=== PATIENT | male | born 1980 | race American Indian/Alaskan Native ===

== ENCOUNTER 2019-10-07 13:45 | Inpatient (IN) | payer OTHER ==
[2019-10-07] MEDS ORDERED: HYDROcodone/ACETAMINOPHEN 5-325 MG TAB PO ONE (15:40)
--- NOTE | 2019-10-07 15:40 | Emergency Department Report ---
ED Lower Extremity HPI - General Chief Complaint: Extremity Injury, Lower Stated Complaint: RIGHT FOOT PAIN, INFLAMMATION, DRAINAGE Time Seen by Provider: 10/07/19 15:23 Source: patient Mode of arrival: Ambulatory Limitations: No Limitations - History of Present Illness Initial Comments: This is a 39-year-old male presented to the emergency room complaining of right foot pain x3 weeks. Patient reports that he took some of his mom's antibiotic but unknown name. Denies any nausea vomiting. Denies any fever or chills. Denies any numbness or tingling to extremities. Denies any history of diabetes or hypertension. Denies any cough or shortness of breath. Reports pain to right foot distally 7/10 worse with walking, touch and movement. Pain is achy and throbbing. Denies taking any [id number] pain medication. Patient does not have a primary care. Patient reports that it started 3 weeks ago after he has been working for a while and water and his feet gets wet. MD Complaint: other (Right foot pain, drainage.) Onset/Timin -: week(s) Injury: Foot: Right, Toes: Right Type of Injury: unknown Place: street/outdoors Severity: severe Severity scale (0 -10): 7 Improves With: nothing Worsens With: weight bearing, movement, palpation Context: walking Other Symptoms: other (Drainage,) Associated Symptoms: ambulatory Treatments Prior to Arrival: other (Antibiotic) - Related Data Allergies Allergy/AdvReac Type Severity Reaction Status Date / Time No Known Allergies Allergy Unverified 10/07/19 13:52 ED Review of Systems ROS: Stated complaint: RIGHT FOOT PAIN, INFLAMMATION, DRAINAGE Other details as noted in HPI Constitutional: denies: chills, fever Respiratory: denies: cough, shortness of breath, SOB with exertion, SOB at rest, wheezing Cardiovascular: denies: chest pain, palpitations, dyspnea on exertion, ortho pnea, syncope Gastrointestinal: denies: abdominal pain, nausea, vomiting Musculoskeletal: arthralgia. denies: back pain, joint swelling, myalgia Neurological: denies: headache, numbness, paresthesias ED Past Medical Hx - Past Medical History Previous Medical History?: No - Surgical History Past Surgical History?: No - Family History Family history: no significant - Social History Smoking Status: Current Some Day Smoker Substance Use Type: None ED Physical Exam - General Limitations: No Limitations General appearance: alert, in no apparent distress - Head Head exam: Present: atraumatic, normocephalic - Eye Eye exam: Present: normal appearance, PERRL, EOMI Pupils: Present: normal accommodation - ENT ENT exam: Present: normal exam, mucous membranes moist, TM's normal bilaterally, other (Nasal congestion and runny nose). Absent: normal orophraynx - Neck Neck exam: Present: normal inspection, full ROM. Absent: tenderness, lymphadenopathy - Respiratory Respiratory exam: Present: normal lung sounds bilaterally. Absent: respiratory distress, wheezes, rales, rhonchi, stridor, chest wall tenderness, accessory muscle use, decreased breath sounds, prolonged expiratory - Cardiovascular Cardiovascular Exam: Present: regular rate, normal rhythm, normal heart sounds - GI/Abdominal GI/Abdominal exam: Present: soft, normal bowel sounds. Absent: tenderness, organomegaly - Extremities Exam Extremities exam: Present: normal inspection, full ROM, normal capillary refill, other (No cce. + 2 pulses in all extremities, no neurovascular compromise). Absent: tenderness, pedal edema, joint swelling - Back Exam Back exam: Present: normal inspection, full ROM, other (Ambulates without any difficulties). Absent: tenderness, muscle spasm, rash noted - Neurological Exam Neurological exam: Present: alert, oriented X3, normal gait - Psychiatric Psychiatric exam: Present: normal affect, normal mood - Skin Skin exam: Present: warm, dry, intact, normal color. Absent: rash ED Course Vital Signs 10/07/19 10/07/19 14:01 15:49 Temperature 98.9 F Pulse Rate 79 Respiratory 16 18 Rate Blood Pressure 110/61 [Left] O2 Sat by Pulse 99 Oximetry - Reevaluation(s) Reevaluation #1: 10/07/19 16:35 Patient here for right foot pain and drainage x3 weeks. I spoke with Dr. Andrade regarding patient presentation and complaints and he examined patient. Patient given Hoolehua 5/325 2 tabs p.o. as started on Diflucan. Reevaluation #2: 10/07/19 17:16 Patient reports pain is better. CBC and BMP stable. Wound culture sent. I spoke with Dr. Huber regarding x-ray of right foot which is negative findings along with lab work and he decided appreciate patient will need admission. I spoke with Dr. Blackman via phone and he will see patient. I discussed results and plans with patient and he voiced understanding. Dressing to right foot to be done after patient seen by Dr. Stack. Reevaluation #3: 10/07/19 19:[address] Blackman emergency room. Patient to be admitted to [facility]. Patient to receive Unasyn and vancomycin. Blood cultures x2. Detail expressed with the patient and he voiced understanding. ED Lower Extremity MDM - Lab Data Result diagrams: 10/07/19 16:00 10/07/19 16:00 Lab Results 10/07/19 10/07/19 Range/Units 16:00 16:00 WBC 5.3 (4.5-11.0) K/mm3 RBC 4.34 (3.65-5.03) M/mm3 Hgb 13.1 (11.8-15.2) gm/dl Hct 40.0 (35.5-45.6) % MCV 92 (84-94) fl MCH 30 (28-32) pg MCHC 33 (32-34) % RDW 14.3 (13.2-15.2) % Plt Count 231 (140-440) K/mm3 Lymph % (Auto) 23.9 (13.4-35.0) % Briscoe % (Auto) 7.0 (0.0-7.3) % Eos % (Auto) 3.8 (0.0-4.3) % Baso % (Auto) 1.1 (0.0-1.8) % Lymph # 1.3 (1.2-5.4) K/mm3 Briscoe # 0.4 (0.0-0.8) K/mm3 Eos # 0.2 (0.0-0.4) K/mm3 Baso # 0.1 (0.0-0.1) K/mm3 Seg Neutrophils % 64.2 (40.0-70.0) % Seg Neutrophils # 3.4 (1.8-7.7) K/mm3 Sodium 137 (137-145) mmol/L Potassium 4.3 (3.6-5.0) mmol/L Chloride 102.6 (98-107) mmol/L Carbon Dioxide 19 L (22-30) mmol/L Anion Gap 20 mmol/L BUN 14 (9-20) mg/dL Creatinine 0.9 (0.8-1.5) mg/dL Estimated GFR > 60 ml/min BUN/Creatinine Ratio 16 % Glucose 61 L (75-100) mg/dL Calcium 8.9 (8.4-10.2) mg/dL Total Bilirubin 0.20 (0.1-1.2) mg/dL AST 17 (5-40) units/L ALT 8 (7-56) units/L Alkaline Phosphatase 64 (35-129) units/L Total Protein 6.5 (6.3-8.2) g/dL Albumin 3.4 L (3.9-5) g/dL Albumin/Globulin Ratio 1.1 % Blood culture and wound culture pending - Radiology Data Radiology results: report reviewed Print Report Referring Physician:ENRICO LILLYPatient Name:MICHEAL JACOBSONPatient ID:[id number] of :[id number]:MaleAccession:[id number] Date:[id number] Status:[place] [id number] XRay Report Signed Patient: MICHEAL JACOBSON MR#: [id number] : 1980 Acct:[id number] Age/Sex: 39 / M ADM Date: 10/07/19 Loc: ED Attending Dr: Ordering Physician: NORMA INGRAM Date of Service: 10/07/19 Procedure(s): XR foot 3+V RT Accession Number(s): [id number] cc: NORMA INGRAM Fluoro Time In Minutes: XR foot 3+V RT INDICATION / CLINICAL INFORMATION: Pain, drainage x3 weeks. COMPARISON: None available. FINDINGS: BONES/JOINT(S): No acute fracture or subluxation. Mild DJD in the first MTP joint. SOFT TISSUES: No significant abnormality. No soft tissue gas or radiopaque f oreign body. ADDITIONAL FINDINGS: None. Signer Name: Christoph Claros MD Signed: 10/07/2019 4:31 PM Workstation Name: [id number] Transcribed By: NIKI Dictated By: Christoph Claros MD Electronically Authenticated By: Christoph Claros MD Signed Date/Time: 10/07/19 1631 DD/ 1631 TD/TT: - Medical Decision Making This is a 39-year-old male here reports that he has foot pain and drainage x3 weeks. Patient reports that he has been using Keflex and took about 20 doses last dose was this morning. Physical exam found right foot at the toes with drainage and ulcers noted to sole distally at stage II-III. Tender to palpate with mild swelling. Patient appears to have fungal infection with superimposed bacterial infection of right foot. X-ray of right foot 3 views showed no acute findings. I discussed patient presentation with Dr. Andrade and he saw patient and decision to admit. I spoke with Dr. Blackman who saw patient in emergency room and agreed to admit patient to [facility]. CBC and chemistry stable. Blood culture and wound culture sent. Patient given Hoolehua 5/325 in emergency room for pain. Wound care and patient to be started on vancomycin and Unasyn ED dose ordered post blood cultures. I discussed laboratory, diagnosis, treatment plan and plan for admission to patient and he voiced understanding. Patient awaiting transfer to [facility] floor. - Differential Diagnosis Osteomyelitis, cellulitis, fungal infection Critical care attestation.: If time is entered above; I have spent that time in minutes in the direct care of this critically ill patient, excluding procedure time. ED Disposition Clinical Impression: Infection of right foot Ulcer of right foot Qualifiers: Non-pressure ulcer stage: with fat layer exposed Qualified Code(s): L97.512 - Non-pressure chronic ulcer of other part of right foot with fat layer exposed Pains, foot Qualifiers: Laterality: right Qualified Code(s): M79.671 - Pain in right foot Disposition: OP ADMIT IP TO THIS HOSP Is pt being admited?: Yes Does the pt Need Aspirin: No Condition: Stable
[2019-10-07 16:18] LABS: Basophils # (Auto) 0.1 K/mm3 (0.0-0.1); Basophils % (Auto) 1.1 % (0.0-1.8); Eosinophils # (Auto) 0.2 K/mm3 (0.0-0.4); Eosinophils % (Auto) 3.8 % (0.0-4.3); Hemoglobin 13.1 gm/dl (11.8-15.2); Lymphocytes # (Auto) 1.3 K/mm3 (1.2-5.4); Lymphocytes % (Auto) 23.9 % (13.4-35.0); Mean Corpuscular HGB Conc 33 % (32-34); Mean Corpuscular Volume 92 fl (84-94); Monocytes # (Auto) 0.4 K/mm3 (0.0-0.8); Platelet Count 231 K/mm3 (140-440); Red Blood Count 4.34 M/mm3 (3.65-5.03); Red Cell Distribution Width 14.3 % (13.2-15.2)
[2019-10-07 16:35] LABS: Alanine Aminotransferase 8 units/L (7-56); Albumin 3.4 g/dL (3.9-5); BUN/Creatinine Ratio 16; Blood Urea Nitrogen 14 mg/dL (9-20); Calcium 8.9 mg/dL (8.4-10.2); Hemolysis Index 8
--- NOTE | 2019-10-07 16:35 | XRay Report ---
XR foot 3+V RT INDICATION / CLINICAL INFORMATION: Pain, drainage x3 weeks. COMPARISON: None available. FINDINGS: BONES/JOINT(S): No acute fracture or subluxation. Mild DJD in the first MTP joint. SOFT TISSUES: No significant abnormality. No soft tissue gas or radiopaque foreign body. ADDITIONAL FINDINGS: None. Signer Name: Christoph Claros MD Signed: 10/07/2019 4:31 PM Workstation Name: [id number]
[2019-10-07] MEDS ORDERED: AMPICILLIN/SULBACTA 3GM/100ML 3 GM/100 ML BAG IV ONE (19:02)
[2019-10-07] MEDS ORDERED: VANCOMYCIN/NS 1 GM/250 ML 1 GM/250 ML BAG IV ONE (20:00)
[2019-10-08] MEDS ORDERED: ACETAMINOPHEN 325 MG TAB PO PRN (02:22)
[2019-10-08] MEDS ORDERED: METOCLOPRAMIDE 10 MG/2 ML INJ IV PRN (02:22)
[2019-10-08] MEDS ORDERED: HYDROmorphone 1 MG/1 ML INJ IV PRN (02:22)
[2019-10-08] MEDS ORDERED: ONDANSETRON 4 MG/2 ML INJ IV PRN (02:22)
--- NOTE | 2019-10-08 02:26 | Event Note ---
Date: 10/07/19 See history and physical in the reports Left lower extremity cellulitis Onychomycosis
[2019-10-08] MEDS ORDERED: VANCOMYCIN PHARMACY TO DOSE IV SCH (03:00)
[2019-10-08] MEDS: AMPICILLIN/SULBACTA 3GM/100ML 3 GM/100 ML BAG IV SCH ×3 (05:35→21:38)
[2019-10-08 06:30] LABS: Basophils # (Auto) 0.1 K/mm3 (0.0-0.1); Basophils % (Auto) 1.3 % (0.0-1.8); Eosinophils # (Auto) 0.2 K/mm3 (0.0-0.4); Eosinophils % (Auto) 5.7 % (0.0-4.3); Hematocrit 38.4 % (35.5-45.6); Hemoglobin 12.5 gm/dl (11.8-15.2); Lymphocytes # (Auto) 1.7 K/mm3 (1.2-5.4); Lymphocytes % (Auto) 41.8 % (13.4-35.0); Mean Corpuscular HGB Conc 33 % (32-34); Mean Corpuscular Volume 93 fl (84-94); Monocytes # (Auto) 0.4 K/mm3 (0.0-0.8); Monocytes % (Auto) 10.5 % (0.0-7.3); Platelet Count 190 K/mm3 (140-440); Red Blood Count 4.15 M/mm3 (3.65-5.03); Red Cell Distribution Width 14.4 % (13.2-15.2)
[2019-10-08 06:52] LABS: Alanine Aminotransferase 7 units/L (7-56); Albumin 3.5 g/dL (3.9-5); BUN/Creatinine Ratio 18; Blood Urea Nitrogen 16 mg/dL (9-20); Calcium 8.9 mg/dL (8.4-10.2); Hemolysis Index 4
[2019-10-08] MEDS: VANCOMYCIN/NS 1 GM/250 ML 1 GM/250 ML BAG IV SCH ×2 (08:54→21:45)
[2019-10-08] MEDS: FAMOTIDINE 20 MG TAB PO SCH ×2 (10:15→21:57)
--- NOTE | 2019-10-08 12:38 | Progress Note ---
Assessment and Plan Assessment and plan: Cellulitis right foot Admitted seem to have fungal, athletes foot too discussed with ID History Interval history: Right foot wound,redness Hospitalist Physical - Physical exam Narrative exam: GEN: Not in acute distress, lying in bed HEENT: Normocephalic, atraumatic, Neck: supple, No JVD Lungs: Clear, no crackles, heart;S1 and S2 reg, no murmurs, rubs or gallop Abd:soft, non tender, non distended, normal bowel sounds Ext: right foot ulcer looks like athlete foot with erythema, Neuro: AAO x 3. No focal neuro signs - Constitutional Vitals: Temp Pulse Resp BP Pulse Ox 97.5 F L 52 L 18 104/56 98 10/08/19 04:26 10/08/19 04:26 10/08/19 04:26 10/08/19 04:26 10/08/19 04:26 Results - Labs CBC & Chem 7: 10/08/19 05:37 10/09/19 05:44 Labs: Laboratory Last Values WBC 4.1 K/mm3 (4.5-11.0) L 10/08/19 05:37 RBC 4.15 M/mm3 (3.65-5.03) 10/08/19 05:37 Hgb 12.5 gm/dl (11.8-15.2) 10/08/19 05:37 Hct 38.4 % (35.5-45.6) 10/08/19 05:37 MCV 93 fl (84-94) 10/08/19 05:37 MCH 30 pg (28-32) 10/08/19 05:37 MCHC 33 % (32-34) 10/08/19 05:37 RDW 14.4 % (13.2-15.2) 10/08/19 05:37 Plt Count 190 K/mm3 (140-440) 10/08/19 05:37 Lymph % (Auto) 41.8 % (13.4-35.0) H 10/08/19 05:37 Toombs % (Auto) 10.5 % (0.0-7.3) H 10/08/19 05:37 Eos % (Auto) 5.7 % (0.0-4.3) H 10/08/19 05:37 Baso % (Auto) 1.3 % (0.0-1.8) 10/08/19 05:37 Lymph # 1.7 K/mm3 (1.2-5.4) 10/08/19 05:37 [place]ombs # 0.4 K/mm3 (0.0-0.8) 10/08/19 05:37 Eos # 0.2 K/mm3 (0.0-0.4) 10/08/19 05:37 Baso # 0.1 K/mm3 (0.0-0.1) 10/08/19 05:37 Seg Neutrophils % 40.7 % (40.0-70.0) 10/08/19 05:37 Seg Neutrophils # 1.7 K/mm3 (1.8-7.7) L 10/08/19 05:37 Sodium 140 mmol/L (137-145) 10/08/19 05:37 Potassium 3.8 mmol/L (3.6-5.0) 10/08/19 05:37 Chloride 104.2 mmol/L (98-107) 10/08/19 05:37 Carbon Dioxide 26 mmol/L (22-30) D 10/08/19 05:37 Anion Gap 14 mmol/L 10/08/19 05:37 BUN 16 mg/dL (9-20) 10/08/19 05:37 Creatinine 0.9 mg/dL (0.8-1.5) 10/08/19 05:37 Estimated GFR > 60 ml/min 10/08/19 05:37 BUN/Creatinine Ratio 18 % 10/08/19 05:37 Glucose 89 mg/dL (75-100) 10/08/19 05:37 Hemoglobin A1c 5.7 % (4-6) 10/08/19 05:37 Calcium 8.9 mg/dL (8.4-10.2) 10/08/19 05:37 Total Bilirubin 0.40 mg/dL (0.1-1.2) 10/08/19 05:37 AST 15 units/L (5-40) 10/08/19 05:37 ALT 7 units/L (7-56) 10/08/19 05:37 Alkaline Phosphatase 60 units/L (35-129) 10/08/19 05:37 Total Protein 6.2 g/dL (6.3-8.2) L 10/08/19 05:37 Albumin 3.5 g/dL (3.9-5) L 10/08/19 05:37 Albumin/Globulin Ratio 1.3 % 10/08/19 05:37 Microbiology: Microbiology 10/07/19 19:22 Peripheral/Venous Blood Culture - Preliminary Culture in Progress 10/07/19 19:22 Peripheral/Venous Blood Culture - Preliminary Culture in Progress Hawk/IV: Voiding Method Toilet IV Catheter Type [Left INT / Saline Lock Antecubital] Active Medications - Current Medications Current Medications: Generic Name Dose Route Start Last Admin Trade Name Freq PRN Reason Stop Dose Admin Acetaminophen 650 mg 10/08/19 02:22 Tylenol PO Q4H PRN Pain MILD(1-3)/Fever >100.5/CERVANTES Famotidine 20 mg 10/08/19 10:00 10/08/19 10:15 Pepcid PO 20 mg BID SIENNA Administration Hydromorphone HCl 0.5 mg 10/08/19 02:22 Dilaudid IV Q3H PRN Pain , Severe (7-10) Ampicillin Sodium/Sulbactam Sodium 3 gm in 100 mls @ 100 mls/hr 10/08/19 06:00 10/08/19 05:35 Unasyn/Ns 3 Gm/100 Ml IV 100 mls/hr Q6HR SIENNA Administration Protocol Vancomycin HCl 1 gm in 250 mls @ 250 mls/hr 10/08/19 08:00 10/08/19 08:54 Vancomycin/Ns 1 Gm/250 Ml IV 250 mls/hr Q12H SIENNA Administration Metoclopramide HCl 10 mg 10/08/19 02:22 Reglan IV Q6H PRN Nausea And Vomiting Ondansetron HCl 4 mg 10/08/19 02:22 Zofran IV Q8H PRN Nausea And Vomiting Oxycodone/Acetaminophen 1 tab 10/08/19 02:22 Percocet 5/325 PO Q6H PRN Pain, Moderate (4-6) Sodium Chloride 10 ml 10/08/19 10:00 10/08/19 10:16 Sodium Chloride Flush Syringe 10 Ml IV 10 ml BID SIENNA Administration Sodium Chloride 10 ml 10/08/19 02:22 Sodium Chloride Flush Syringe 10 Ml IV PRN PRN LINE FLUSH
[2019-10-09] MEDS: AMPICILLIN/SULBACTA 3GM/100ML 3 GM/100 ML BAG IV SCH ×2 (03:15→07:27)
[2019-10-09 07:12] LABS: Alanine Aminotransferase 8 units/L (7-56); Albumin 3.5 g/dL (3.9-5); BUN/Creatinine Ratio 16; Blood Urea Nitrogen 14 mg/dL (9-20); Calcium 8.6 mg/dL (8.4-10.2); Hemolysis Index 20
[2019-10-09] MEDS: oxyCODONE /ACETAMINOPHEN 5-325MG TAB PO PRN ×2 (08:08→13:55)
[2019-10-09] MEDS: FAMOTIDINE 20 MG TAB PO SCH ×2 (08:16→10:20)
--- NOTE | 2019-10-09 09:47 | History and Physical Report ---
CHIEF COMPLAINT: ____ lower extremity redness for 3 weeks. HISTORY OF PRESENT ILLNESS: A 39-year-old male with no significant past medical history, comes in for ____ foot redness for 3 weeks. The patient states he has been working with wet shoes, which may have caused the problem. No fever or chills. Pain about 6 on a scale of 1-10 in the ____ foot. PAST MEDICAL HISTORY: No hypertension, no diabetes. PAST SURGICAL HISTORY: None. FAMILY HISTORY: Nothing significant. SOCIAL HISTORY: Current smoker. REVIEW OF SYSTEMS: Significant for ____ foot pain and redness. PHYSICAL EXAMINATION: GENERAL: Young male, cooperative during examination. VITAL SIGNS: Blood pressure 110/61, temperature 98.1, pulse is 79, sats are 99%. HEENT: Unremarkable. Pupils equal and reactive. NECK: Supple, no lymphadenopathy, no thyromegaly. LUNGS: Clear to auscultation and percussion. Good air entry. CARDIOVASCULAR: S1, S2 heard. No gallop, no murmur, no rub. Apical impulse in left fifth intercostal space and midclavicular line. ABDOMEN: Soft and benign. No hepatosplenomegaly. No guarding, no rigidity. Hernial orifices are normal. EXTREMITIES: Good pedal pulses. No pedal edema. CENTRAL NERVOUS SYSTEM: Alert and oriented. No focal deficits. EXTREMITIES: ____ foot red and swollen in the forefoot, especially the webs of all the toes and the distal one third of the foot red and swollen. IMAGING STUDIES: ____ foot soft tissue swelling. No osteomyelitis. LABORATORY DATA: CBC is normal and electrolytes are normal. Albumin is 3.4. ASSESSMENT AND PLAN: 1. ____ foot cellulitis. The patient started on IV Unasyn and vancomycin. Wound care. ID consult if necessary. 2. Nicotine dependence. Counseled. Nicoderm patch initiated. 3. Malnutrition, very mild. Dietary supplements. 4. Deep venous thrombosis prophylaxis, heparin 5000 q. 12. JOB# [id number] VSM/NTS
[2019-10-09] MEDS: VANCOMYCIN/NS 1 GM/250 ML 1 GM/250 ML BAG IV SCH (10:56)
--- NOTE | 2019-10-09 13:18 | History and Physical Report ---
History of Present Illness Date of examination: 10/08/19 Date of admission: 10/07/19 18:33 Chief complaint: Right foot infection X 1 month History of present illness: patient presents with right foot ulcer, erythema x 1 month Medications and Allergies Allergies Allergy/AdvReac Type Severity Reaction Status Date / Time No Known Allergies Allergy Unverified 10/07/19 13:52 Home Medications Medication Instructions Recorded Confirmed Last Taken Type No Known Home Medications [No 10/08/19 10/08/19 Unknown History Reported Home Medications] Active Meds: Active Medications Acetaminophen (Tylenol) 650 mg PO Q4H PRN PRN Reason: Pain MILD(1-3)/Fever >100.5/CERVANTES Famotidine (Pepcid) 20 mg PO BID [facility] Last Admin: 10/09/19 10:20 Dose: Not Given Documented by: Hydromorphone HCl (Dilaudid) 0.5 mg IV Q3H PRN PRN Reason: Pain , Severe (7-10) Last Admin: 10/09/19 00:03 Dose: 0.5 mg Documented by: Ampicillin Sodium/Sulbactam Sodium (Unasyn/Ns 3 Gm/100 Ml) 3 gm in 100 mls @ 100 mls/hr IV Q6HR [facility]; Protocol Last Admin: 10/09/19 07:27 Dose: 100 mls/hr Documented by: Vancomycin HCl (Vancomycin/Ns 1 Gm/250 Ml) 1 gm in 250 mls @ 250 mls/hr IV Q12H [facility] Last Admin: 10/09/19 10:56 Dose: 250 mls/hr Documented by: Metoclopramide HCl (Reglan) 10 mg IV Q6H PRN PRN Reason: Nausea And Vomiting Ondansetron HCl (Zofran) 4 mg IV Q8H PRN PRN Reason: Nausea And Vomiting Oxycodone/Acetaminophen (Percocet 5/325) 1 tab PO Q6H PRN PRN Reason: Pain, Moderate (4-6) Last Admin: 10/09/19 08:08 Dose: 1 tab Documented by: Sodium Chloride (Sodium Chloride Flush Syringe 10 Ml) 10 ml IV BID [facility] Last Admin: 10/09/19 10:31 Dose: Not Given Documented by: Sodium Chloride (Sodium Chloride Flush Syringe 10 Ml) 10 ml IV PRN PRN PRN Reason: LINE FLUSH Exam - Physical Exam Narrative exam: GEN: Not in acute distress, lying in bed HEENT: Normocephalic, atraumatic, Neck: supple, No JVD Lungs: Clear, no crackles, heart;S1 and S2 reg, no murmurs, rubs or gallop Abd:soft, non tender, non distended, normal bowel sounds Ext: right foot ulcer looks like athlete foot with erythema, Neuro: AAO x 3. No focal neuro signs - Constitutional Vitals: Temp Pulse Resp BP Pulse Ox 97.5 F L 48 L 18 100/62 99 10/09/19 12:11 10/09/19 12:11 10/09/19 12:11 10/09/19 12:11 10/09/19 12:11 Results - Labs CBC & Chem 7: 10/08/19 05:37 10/09/19 05:44 Labs: Abnormal lab results 10/09/19 Range/Units 05:44 Carbon Dioxide 21 L (22-30) mmol/L Albumin 3.5 L (3.9-5) g/dL Assessment and Plan Cellulitis right foot Admitted seem to have fungal, athletes foot too discussed with ID
[2019-10-09] MEDS ORDERED: AMPICILLIN/SULBACTA 3GM/100ML 3 GM/100 ML BAG IV SCH (14:00)
--- NOTE | 2019-10-09 15:14 | Discharge Summary ---
Providers - Providers Date of Admission: 10/07/19 18:33 Date of discharge: 10/09/19 Attending physician: CARINA BUCHANAN 10/08/19 02:25 Consult to Wound/ET Nurse [CONS] Routine Reason For Exam: wound eval Primary care physician: [employer] CO[employer]IN[employer] Hospitalization Condition: Fair Disposition: DC-01 TO HOME OR SELFCARE Core Measure Documentation - Palliative Care Palliative Care/ Comfort Measures: Not Applicable - Core Measures Any of the following diagnoses?: none Exam - Constitutional Vitals: Temp Pulse Resp BP Pulse Ox 97.5 F L 48 L 18 100/62 99 10/09/19 12:11 10/09/19 12:11 10/09/19 12:11 10/09/19 12:11 10/09/19 12:11 Plan Activity: no restrictions Diet: regular Plan of Treatment: 1.Follow up with PCP or [facility] in 1 week Follow up with: PRIMARY MD ROLA [Primary Care Provider] - 7 Days
[2019-10-09] MEDS ORDERED: FLUCONAZOLE 200 MG TAB PO SCH (16:00)
[2019-10-09 16:52] VITALS: BP 109/69
== END 2019-10-09 17:38 | disposition home or self-care (01) | DRG 603 ==
LOC: ED 13:45 → 3A 18:33 → 4A 10-08 15:48
PROVIDERS: ADMIT Internal Medicine; ATTEND Internal Medicine
DX: L03.115 Cellulitis of right lower limb (principal); B35.1 Tinea unguium; L03.116 Cellulitis of left lower limb; F17.210 Nicotine dependence, cigarettes, uncomplicated; L97.512 Non-pressure chronic ulcer of other part of right foot with fat layer exposed
CPT/HCPCS: 36415; 80048; 80053; 83036; 85025; 87040; G0378; J0295; J1170; J3370